=== PATIENT | female | born 1995 | race Caucasian/White ===

== ENCOUNTER 2017-03-24 19:26 | Emergency (ER) | payer OTHER ==
[2017-03-24 20:46] LABS: HEMOGLOBIN 13.3 gm/dl (12.3-15.3); RED BLOOD COUNT 4.44 M/UL (4.00-5.10)
[2017-03-24 21:02] LABS: BUN/CREATININE RATIO 13 (0-10)
== END 2017-03-25 01:45 | disposition home or self-care (01) ==
LOC: ER1 19:26
PROVIDERS: Family Medicine
DX: S06.9X1A Unspecified intracranial injury with loss of consciousness of 30 minutes or less, initial encounter (principal); R00.2 Palpitations; W19.XXXA Unspecified fall, initial encounter
CPT/HCPCS: 36415; 70450; 80053; 81001; 82550; 82553; 83874; 84484; 84703; 85025; 85379; 93005; 96374; 96375; 99284; J1885; J2405; J7050; Q9963

== ENCOUNTER 2021-01-11 20:30 | Emergency (ER) | payer OTHER ==
[~2021-01-11 20:30] MED LIST: BUTALBIT-ACETA1 EACH PO; CELEXA40 MG PO; COLACE 100MG C100 MG PO; IBUPROFEN600 MG PO; IBUPROFEN800 MG PO; KEFLEX CAP 500500 MG PO; LORTAB 5-325 M1 EACH PO; MACROBID 100 M100 MG PO; NORCO 5-325 TA1 EACH PO; NORCO 7.5-3251 EACH PO; OMEPRAZOLE20 M1 PO; ONDANSETRON ODT4 MG PO; PERCOCET 5/325 T1 EA PO; PHENERGAN 12.12.5 M1 PO; SEROQUEL50 MG PO; TORADOL 10 MG T10 MG PO; ZOFRAN4 MG PO; [UNRECOGNIZED DRUG - REMARK]
== END 2021-01-11 22:17 | disposition home or self-care (01) ==
LOC: ER1 20:30
DX: Z97.5 Presence of (intrauterine) contraceptive device (principal); F17.210 Nicotine dependence, cigarettes, uncomplicated; Z90.49 Acquired absence of other specified parts of digestive tract
CPT/HCPCS: 99283

== ENCOUNTER → 2021-04-06 | Outpatient (CLI) | payer OTHER | LOC: KOH-I 09:41 | DX: R10.32 Left lower quadrant pain (principal); R14.3 Flatulence | CPT/HCPCS: 74018 ==

== ENCOUNTER 2021-10-05 14:51 | Emergency (ER) | payer OTHER ==
[~2021-10-05] VITALS: Ht 175.3 cm; Wt 136.1 kg
[2021-10-05 16:09] LABS: HEMOGLOBIN 15.5 gm/dl (12.3-15.3); RED BLOOD COUNT 5.12 M/UL (4.00-5.10); WHITE BLOOD COUNT 6.9 K/UL (4.5-11.0)
[2021-10-05 16:29] LABS: BUN/CREATININE RATIO 15 (0-10)
[2021-10-05] MEDS ORDERED: MACROBID 100 M100 M1 PO (21:55)
== END 2021-10-06 00:05 | disposition home or self-care (01) ==
LOC: ER1 14:51
PROVIDERS: Nurse Practitioner
DX: U07.1 COVID-19 (principal); F17.210 Nicotine dependence, cigarettes, uncomplicated; Z90.49 Acquired absence of other specified parts of digestive tract; Z23 Encounter for immunization
CPT/HCPCS: 71045; 80053; 81001; 84703; 85025; 85379; 93005; 99285; M0245; Q9967; U0002

== ENCOUNTER → 2021-10-31 | Outpatient (CLI) | payer OTHER ==
[~2021-10-31] MED LIST changes: +MACROBID 100 M100 M1 PO
== END ==
LOC: RAD 11:09
DX: R06.02 Shortness of breath (principal)
CPT/HCPCS: 71046